=== PATIENT | female | born 1940 | race Caucasian/White ===

== ENCOUNTER → 2022-08-08 14:48 | Outpatient (BNVA) | payer MEDICARE, SELFPAY | PROVIDERS: Visit Provider Family Medicine | DX: G62.9 Polyneuropathy, unspecified (principal); I10 Essential (primary) hypertension; Z13.220 Encounter for screening for lipoid disorders; Z13.6 Encounter for screening for cardiovascular disorders; I16.0 Hypertensive urgency; M54.50 Low back pain, unspecified; G89.29 Other chronic pain; N95.1 Menopausal and female climacteric states; Z76.89 Persons encountering health services in other specified circumstances | CPT/HCPCS: 80053; 80061 ==

== ENCOUNTER → 2022-11-22 13:27 | Outpatient (BNVA) | payer MEDICARE, SELFPAY | PROVIDERS: PCP Family Medicine; Visit Provider Family Medicine | DX: I10 Essential (primary) hypertension (principal); R79.89 Other specified abnormal findings of blood chemistry | CPT/HCPCS: 80048; 84443 ==

== ENCOUNTER → 2022-12-26 11:47 | Outpatient (BNVA) | payer MEDICARE, SELFPAY | PROVIDERS: PCP Family Medicine; Visit Provider Anesthesiology Pain Medicine | DX: M47.896 Other spondylosis, lumbar region (principal); M54.50 Low back pain, unspecified; G89.29 Other chronic pain; M51.16 Intervertebral disc disorders with radiculopathy, lumbar region | CPT/HCPCS: 72110; 99204 ==

== ENCOUNTER 2023-01-25 10:56 | Outpatient (CLI) | payer MEDICARE, SELFPAY ==
--- NOTE | 2023-01-25 13:00 | MR_ITS ---
WS: [id number] MRI LUMBAR SPINE NONCONTRAST HISTORY: M54.9 - Dorsalgia, unspecified COMPARISON: None available. TECHNIQUE: Sagittal and axial multisequence imaging is submitted. Increase in thoracic kyphosis. Moderate LEFT curvature lumbar spine. L3 anterolisthesis by 5 mm. No acute marrow edema or fracture. Severe disc space narrowing throughout. Focal area of artifact in the soft tissues of the posterior l umbar spine. May be related to a displaced interbody spacer. Conus terminates normally at L1. L1-L2: Scoliosis with annular disc bulging and osteophytic ridging and marked ligamentum flavum and f acet arthritis. Moderate central and bilateral subarticular recess and foraminal stenosis. Greater st enosis on the RIGHT. L2-L3: Scoliosis with annular disc bulging, osteophytic ridging, ligamentum flavum and facet arthriti s. RIGHT foraminal disc protrusion. Combination of factors resulting in moderate to severe central, b ilateral subarticular recess and foraminal stenosis. Greater stenosis RIGHT foramen. L3-L4: Marked annular disc bulging with osteophytic ridging. Severe ligamentum flavum and facet arthr itis. Metallic artifact is posterior to the L3-4 disc and vertebral body. Severe central, bilateral s ubarticular recess and foraminal stenosis. L4-L5: Mild annular disc bulging with osteophytic ridging and facet joint arthritis, LEFT greater andrzej n RIGHT. Moderate central with mild bilateral subarticular recess and RIGHT foraminal stenosis. Sever e LEFT foraminal stenosis. L5-S1: Diffuse annular disc bulging greatest to the LEFT. Severe LEFT foraminal stenosis with osteoph ytic ridging. Mild RIGHT foraminal stenosis. Mild central stenosis with disc contacting the traversin g S1 nerve roots. MR/MR lumbar spine wo con* [id number] IMPRESSION: 1. Advanced levoscoliosis of the lumbar spine with severe facet joint and disc disease. 2. Multilevel areas of central and foraminal stenosis with facet joint arthrit is. 3. L1-2: Moderate central, bilateral subarticular recess and foraminal stenosi s. 4. L2-3: Moderate to severe central, bilateral subarticular recess and foramin al stenosis. 5. L3-4: Severe central, bilateral subarticular recess and foraminal stenosis. 6. L4-5: Moderate central stenosis with severe LEFT foraminal stenosis. 7. L5-S1: Severe LEFT foraminal stenosis with mild central stenosis. Disc cont acts the traversing S1 nerve roots.
== END 2023-01-25 10:57 | disposition home or self-care (01) ==
PROVIDERS: PCP Family Medicine; Visit Provider Anesthesiology Pain Medicine
DX: M41.86 Other forms of scoliosis, lumbar region (principal); M47.816 Spondylosis without myelopathy or radiculopathy, lumbar region; M48.061 Spinal stenosis, lumbar region without neurogenic claudication
CPT/HCPCS: 72148

== ENCOUNTER → 2023-02-13 11:42 | Outpatient (BNVA) | payer MEDICARE, SELFPAY | PROVIDERS: PCP Family Medicine; Visit Provider Internal Medicine Cardiovascular Disease | DX: I10 Essential (primary) hypertension (principal) | CPT/HCPCS: 93005; 99204; 99214 ==

== ENCOUNTER → 2023-02-22 11:02 | Outpatient (BNVA) | payer MEDICARE, SELFPAY | PROVIDERS: PCP Family Medicine; Visit Provider Anesthesiology Pain Medicine | DX: G89.29 Other chronic pain; M51.16 Intervertebral disc disorders with radiculopathy, lumbar region; M48.061 Spinal stenosis, lumbar region without neurogenic claudication | CPT/HCPCS: 99214 ==

== ENCOUNTER → 2023-03-09 14:32 | Outpatient (BNVA) | payer MEDICARE, SELFPAY | PROVIDERS: PCP Family Medicine; Visit Provider Family Medicine | DX: G62.9 Polyneuropathy, unspecified (principal); I10 Essential (primary) hypertension; M51.16 Intervertebral disc disorders with radiculopathy, lumbar region | CPT/HCPCS: 80048; 83735 ==

== ENCOUNTER → 2023-03-14 14:31 | Outpatient (BNVA) | payer MEDICARE, SELFPAY | PROVIDERS: PCP Family Medicine; Visit Provider Anesthesiology Pain Medicine | DX: M54.16 Radiculopathy, lumbar region (principal); G89.29 Other chronic pain | CPT/HCPCS: 64483; 64484; J1100; J3490 ==

== ENCOUNTER → 2023-03-28 14:31 | Outpatient (BNVA) | payer MEDICARE, SELFPAY | PROVIDERS: PCP Family Medicine; Visit Provider Anesthesiology Pain Medicine | DX: M54.16 Radiculopathy, lumbar region (principal); G89.29 Other chronic pain | CPT/HCPCS: 64483; 64484; J1100; J3490 ==

== ENCOUNTER → 2023-04-17 11:00 | Outpatient (BNVA) | payer MEDICARE, SELFPAY | PROVIDERS: PCP Family Medicine; Visit Provider Anesthesiology Pain Medicine | DX: G89.29 Other chronic pain; M51.16 Intervertebral disc disorders with radiculopathy, lumbar region | CPT/HCPCS: 99214 ==

== ENCOUNTER → 2023-11-07 14:32 | Outpatient (BNVA) | payer MEDICARE, SELFPAY | PROVIDERS: PCP Family Medicine; Visit Provider Family Medicine | DX: I10 Essential (primary) hypertension (principal); G62.9 Polyneuropathy, unspecified; Z00.00 Encounter for general adult medical examination without abnormal findings; Z71.89 Other specified counseling | CPT/HCPCS: 80053; 80061; 83735; 84443 ==

== ENCOUNTER → 2024-08-07 13:40 | Outpatient (BNVA) | payer MEDICARE, SELFPAY | PROVIDERS: PCP Family Medicine; Visit Provider Family Medicine | DX: I10 Essential (primary) hypertension (principal); R53.83 Other fatigue | CPT/HCPCS: 80053; 80061; 83735; 84443 ==

== ENCOUNTER → 2024-09-13 10:58 | Outpatient (BNVA) | payer MEDICARE, SELFPAY | PROVIDERS: PCP Family Medicine; Visit Provider Family Medicine | DX: R74.8 Abnormal levels of other serum enzymes (principal); E05.90 Thyrotoxicosis, unspecified without thyrotoxic crisis or storm; R79.89 Other specified abnormal findings of blood chemistry | CPT/HCPCS: 80053; 84439; 84443; 84481 ==